=== PATIENT | male | born 1985 | race Caucasian/White ===

== ENCOUNTER 2022-10-17 03:39 | Emergency (ER) | payer SELFPAY ==
[~2022-10-17] VITALS: Ht 180.3 cm; Wt 83.9 kg
[2022-10-17 03:40] VITALS: BP 142/62
--- NOTE | 2022-10-17 03:40 | NUR ---
PT ROSSY DAHL, TAKEN TO CHAIR.
[2022-10-17 04:04] VITALS: BP 142/62
--- NOTE | 2022-10-17 04:04 | NUR ---
Patient discharged with v/s stable. Written and verbal after care instructions given and explained. Patient verbalized understanding. Ambulatory with steady gait. All questions addressed prior to discharge. Advised to follow up with PMD.
== END 2022-10-17 04:04 ==
LOC: MED 03:39
DX: S40.011A Contusion of right shoulder, initial encounter (principal); V49.88XA Car occupant (driver) (passenger) injured in other specified transport accidents, initial encounter; Y93.89 Activity, other specified; Y92.89 Other specified places as the place of occurrence of the external cause; Y99.8 Other external cause status
CPT/HCPCS: 99283